=== PATIENT | female | born 1980 | race Caucasian/White ===

== ENCOUNTER 2017-07-10 17:08 | Emergency (ER) | END 2017-07-10 22:55 | disposition home or self-care (01) ==

== ENCOUNTER 2017-07-16 20:54 | Emergency (ER) | END 2017-07-17 04:35 | disposition home or self-care (01) ==

== ENCOUNTER 2017-12-03 21:28 | Emergency (ER) | END 2017-12-03 21:52 | disposition home or self-care (01) ==